=== PATIENT | female | born 1960 | race Caucasian/White ===

== ENCOUNTER → 2018-11-26 | Outpatient (CLI) | payer BC ==
[~2018-11-26] MED LIST: Acid Controller20 MG PO; FAMO20 PO; ZYRTEC10 MG PO
[2018-11-28 14:08] LABS: HPV 16 Negative (Negative); HPV 18 Negative (Negative); HPV OTHER HR TYPES Negative (Negative)
== END | disposition home or self-care (01) ==
LOC: LAB SHORT 19:18 → LAB 19:18
PROVIDERS: Nurse Practitioner Women's Health
DX: Z12.4 Encounter for screening for malignant neoplasm of cervix (principal)
CPT/HCPCS: 87624; G0123

== ENCOUNTER 2018-12-23 08:17 | Day surgery (SDC) | payer BC ==
[2019-01-15] MEDS ORDERED: THERA1 EACH PO (16:43)
[2019-01-15] MEDS ORDERED: KRILL OIL500 MG PO (16:44)
[2019-01-15] MEDS ORDERED: Vitamin D2000 UNIT PO (16:45)
[2019-01-15] MEDS ORDERED: ASPI325EC PO (16:45)
[2019-01-15] MEDS ORDERED: MAGNESIUM PO (16:45)
== END 2018-12-23 22:39 | disposition home or self-care (01) ==
LOC: PLD 08:17 → MOI US 08:17
PROC: 0HBU3ZX Excision of Left Breast, Percutaneous Approach, Diagnostic (ICD-10-PCS; principal; 2018-12-23)
DX: C50.412 Malignant neoplasm of upper-outer quadrant of left female breast (principal); N95.0 Postmenopausal bleeding; N84.0 Polyp of corpus uteri; Z17.1 Estrogen receptor negative status [ER-]
CPT/HCPCS: 19083; 77065; 88305; 88360; A4648

== ENCOUNTER → 2018-12-27 | Outpatient (CLI) | payer BC ==
[~2018-12-27] MED LIST changes: +ASPI325EC PO; +CETI5 PO; +KRILL OIL500 MG PO; +MAGNESIUM PO; +THERA1 EACH PO; +Vitamin D2000 UNIT PO
== END | disposition home or self-care (01) ==
LOC: LAB SHORT 09:46 → LAB 09:46
DX: N84.0 Polyp of corpus uteri (principal); N95.0 Postmenopausal bleeding
CPT/HCPCS: 88305

== ENCOUNTER 2019-01-20 07:32 | Day surgery (SDC) | payer BC ==
[~2019-01-20] VITALS: Ht 160 cm; Wt 87.6 kg
[~2019-01-20 07:32] MED LIST changes: -CETI5 PO
[2019-01-20] MEDS ORDERED: CETI5 PO (08:23)
--- NOTE | 2019-01-20 08:43 | NUR ---
Ambulatory in Day Surgery History, Chart, Medications and Allergies reviewed before start of procedure. Lungs clear T/O to Auscultation. Patient confirms NPO status and agrees with scheduled surgery. Pre-Op teaching done. Pt verbalizes understanding. Patient States Post-Procedure ride home has been arranged.
--- NOTE | 2019-01-20 12:56 | NUR ---
Discharge instructions reviewed with patient. Patient verbalizes understanding. Copy given to patient to take home. PATEINT ABLE TO TRANSFER INDEPENDENTLY WITH STANDBY ASSIST TO , THAN TO CAR, STABLE ON FEET. Discharged via wheelchair to private car for ride home WITH SPOUSE
== END 2019-01-20 22:54 | disposition home or self-care (01) ==
LOC: ORSCMMR 07:32 → ORD 09:00 → ORSCMMR 22:54
PROVIDERS: Surgery
PROC: B5131ZA Fluoroscopy of Right Jugular Veins using Low Osmolar Contrast, Guidance (ICD-10-PCS; principal; 2019-01-20 10:00)
PROC: 05HM33Z Insertion of Infusion Device into Right Internal Jugular Vein, Percutaneous Approach (ICD-10-PCS; principal; 2019-01-20 10:00)
DX: C50.412 Malignant neoplasm of upper-outer quadrant of left female breast (principal); I10 Essential (primary) hypertension; K21.9 Gastro-esophageal reflux disease without esophagitis; Z79.899 Other long term (current) drug therapy
CPT/HCPCS: 77001; C1788; J0690; J1100; J1642; J2405; J2704; J3010; J7120

== ENCOUNTER → 2021-08-02 | Outpatient (CLI) | payer BC ==
[~2021-08-02] MED LIST changes: +CETI5 PO
== END | disposition home or self-care (01) ==
LOC: LAB SHORT 11:39
DX: L57.0 Actinic keratosis (principal)
CPT/HCPCS: 88305

== ENCOUNTER → 2021-09-01 | Outpatient (CLI) | payer BC ==
[2021-09-01 12:50] LABS: BASOPHILS PERCENT AUTO 0 % (0-2); EOSINOPHILS ABSOLUTE AUTO 0.01 K/mm3 (0.00-0.68); EOSINOPHILS PERCENT AUTO 0 % (0-6); Hematocrit 48.3 % (33.0-51.0); Hemoglobin 15.4 g/dL (11.5-16.0); IMMATURE GRAN ABSOLUTE AUTO 0.02 K/mm3 (0.00-0.10); IMMATURE GRAN PERCENT AUTO 0 % (0-1); LYMPHOCYTES ABSOLUTE AUTO 1.42 K/mm3 (0.84-5.20); LYMPHOCYTES PERCENT AUTO 22 % (21-46); MONOCYTES ABSOLUTE AUTO 0.51 K/mm3 (0.16-1.47); MONOCYTES PERCENT AUTO 8 % (4-13); Mean Corpuscular HGB 27.5 pg (26.0-34.0); Mean Corpuscular HGB Conc 31.9 g/dL (31.5-36.5); Mean Corpuscular Volume 86 fL (80-100); Mean Platelet Volume 10.3 fL (9.1-12.4); NEUTROPHILS ABSOLUTE AUTO 4.44 K/mm3 (1.96-9.15); NEUTROPHILS PERCENT AUTO 69 % (41-73); Platelet Count 233 K/mm3 (150-400); RDW Coefficient Variation 14.6 % (11.7-14.2); RDW Standard Deviation 46.5 fL (35.1-46.3); Red Blood Cell Count 5.59 M/mm3 (3.80-5.20)
[2021-09-01 13:07] LABS: Alanine Aminotransfer (ALT/SGP 33 U/L (12-78); Albumin, Blood 4.2 g/dL (3.4-5.0); Albumin/Globulin Ratio 1.2 (0.8-1.8); Alk Phos 82 U/L (50-136); Anion Gap 8 mmol/L (6-16); Aspartate Aminotrans (AST/SGOT 19 U/L (12-37); Bilirubin, Total 0.9 mg/dL (0.1-1.0); Blood Urea Nitrogen 19 mg/dL (8-24); Bun/Creatinine Ratio 25.6 (12.0-20.0); CO2, Blood 24 mmol/L (21-32); Calcium, Blood 9.9 mg/dL (8.5-10.1); Chloride, Blood 105 mmol/L (98-108); Creatinine, Blood 0.74 mg/dL (0.40-1.00); Globulin, Blood 3.5 g/dL (2.2-4.0); Glomerular Filtration Rate >60 (60-); Glucose, Blood 116 mg/dL (70-99); Potassium, Blood 4.2 mmol/L (3.5-5.5); Sodium, Blood 137 mmol/L (136-145); Total Protein, Blood 7.7 g/dL (6.4-8.2)
== END | disposition home or self-care (01) ==
LOC: LAB SHORT 12:10 → LAB 12:10
PROVIDERS: Internal Medicine Hematology & Oncology
DX: C50.919 Malignant neoplasm of unspecified site of unspecified female breast (principal)
CPT/HCPCS: 80053; 82306; 85025

== ENCOUNTER 2024-07-18 12:08 | Day surgery (SDC) | payer MEDICARE, BC ==
[~2024-07-18] VITALS: Ht 160 cm; Wt 79.4 kg
[~2024-07-18 12:08] MED LIST changes: +Lidocaine HCl 2% 10 ML SDA ONE
[2024-07-18] MEDS ORDERED: CeFAZolin Sodium 2,000 MG VIAL ONE (12:24)
[2024-07-18] MEDS ORDERED: CARV3.125 PO (12:39)
[2024-07-18] MEDS ORDERED: METF500 PO (12:40)
[2024-07-18] MEDS ORDERED: BACL20 PO (12:40)
[2024-07-18] MEDS ORDERED: JARDIANCE10 MG PO (12:44)
[2024-07-18] MEDS ORDERED: TURMERIC500 M2 PO (12:45)
[2024-07-18] MEDS ORDERED: Vitamin K100 MCG PO (12:46)
[2024-07-18] MEDS ORDERED: Vitamin D1000 UNI1 PO (12:46)
[2024-07-18] MEDS ORDERED: Lactated Ringer's 1,000 ML IV ONE (12:59)
[2024-07-18] MEDS ORDERED: propofoL 20 ML IV ONE (13:12)
[2024-07-18] MEDS ORDERED: FentaNYL Citrate 50 MCG/ML 2 ML Injection ONE (13:12)
[2024-07-18] MEDS ORDERED: SuccINYLCHOLINE Chloride 100 MG/5 ML 5MLSYR ONE (13:16)
[2024-07-18] MEDS ORDERED: Dexamethasone Sod Phos 10 MG/ML 1ML VIAL ONE (13:18)
[2024-07-18] MEDS ORDERED: Ondansetron HCl 2 MG / ML 2ML Vial ONE (13:18)
[2024-07-18] MEDS ORDERED: Ketorolac Tromethamine 30mg Vial ONE (13:19)
[2024-07-18] MEDS ORDERED: Phenylephrine HCl 100 MCG/ML-NS 10MLSYR (1MG/10ML) ONE (13:20)
[2024-07-18] MEDS ORDERED: EPINEPhrine HCl 1 MG/ML 1ML Amp IV ONE (13:25)
[2024-07-18] MEDS ORDERED: EPINEPhrine HCl 1 MG/ML 1ML Amp XX ONE (13:25)
[2024-07-18 14:52] VITALS: BP 145/94
--- NOTE | 2024-07-18 14:52 | NUR ---
07/18/24 1458 Amarilis Orta PT TRANSFERS TO SDU PHASE OF CARE. PT DENIES PAIN/NAUSEA. VSS, ON RA. NO VISIBLE SIGNS OF DISTRESS NOTED.
== END 2024-07-18 15:34 | disposition home or self-care (01) ==
LOC: ORSCSDS 12:08
PROVIDERS: Podiatrist Foot & Ankle Surgery
PROC: 0YPB0YZ Removal of Other Device from Left Lower Extremity, Open Approach (ICD-10-PCS; principal; 2024-07-18 13:30)
DX: T84.84XA Pain due to internal orthopedic prosthetic devices, implants and grafts, initial encounter (principal); M19.172 Post-traumatic osteoarthritis, left ankle and foot; M25.572 Pain in left ankle and joints of left foot; E11.9 Type 2 diabetes mellitus without complications; I10 Essential (primary) hypertension; I25.10 Atherosclerotic heart disease of native coronary artery without angina pectoris; Z85.3 Personal history of malignant neoplasm of breast; Z79.84 Long term (current) use of oral hypoglycemic drugs; Z79.899 Other long term (current) drug therapy
CPT/HCPCS: 82947; J0171; J0330; J0690; J1100; J1885; J2003; J2371; J2405; J2704; J3010